=== PATIENT | female | born 1970 | race Caucasian/White ===

== ENCOUNTER → 2023-07-10 14:06 | Outpatient (CLI) | payer OTHER, MEDICAID, SELFPAY ==
--- NOTE | 2023-07-11 21:56 | DI.NM.S_ITS ---
DATE OF SERVICE: 07/10/2023 PROCEDURE: Pharmacologic vasodilator stress and rest myocardial perfusion imaging with gating to assess ejection fraction and regional wall motion. ORDERING PROVIDER: Dilan Suarez MD INDICATIONS: The patient is a 52-year-old morbidly obese female with paroxysmal atrial fibrillation and intermittent chest discomfort. CARDIAC STRESS: Per protocol, 0.4 mg of regadenoson was infused with a normal hemodynamic response. She had no chest discomfort or anginal symptoms. Her resting ECG showed sinus rhythm with fairly normal ST segments. With stress, there were subtle T-wave inversions in the inferolateral leads that promptly resolved. She had occasional PACs, but otherwise maintained sinus rhythm throughout the study. Per protocol, 25.7 millicuries of technetium-99m Myoview was injected and she was imaged 15 minutes later using a gated SPECT acquisition protocol. The day prior, while at rest, she was injected with 26.4 millicuries of technetium-99m Myoview was imaged 15 minutes later, again using a gated SPECT acquisition protocol. FINDINGS: 1. Raw data: There is fairly marked breast attenuation noted which clearly impacts the interpretation with the subdiaphragmatic activity being more intense than that seen within the heart. The TID ratio is normal at 0.38 with a normal TID ratio of 1.01. 2. Quantitated gated SPECT: Post-stress ejection fraction is estimated at 73% without any focal wall motion abnormality. The resting ejection fraction is estimated at 71% with a resting end-diastolic volume of 155 mL. 3. Myocardial perfusion imaging: Post-stress supine images grossly show a normal perfusion pattern without any obvious perfusion defects. The resting images show a similar perfusion pattern although with a mild defect in the inferior wall, likely reflecting diaphragmatic attenuation, although the patient was unable to lie prone to assess for this. IMPRESSION: 1. Probable normal myocardial perfusion study although with reduced sensitivity because of marginal image quality. 2. No obvious perfusion defects to suggest any myocardial ischemia or previous myocardial infarction. 3. Probable normal left ventricular systolic function without any obvious focal wall motion abnormality with mildly increased left ventricular volumes. 4. No angina with pharmacologic vasodilator stress but with subtle, brief T-wave inversions with stress, yet no significant ST-segment deviation. She remained in sinus rhythm and had occasional PACs but no other arrhythmias. Lydia Amezcua - RS/graciela/MT doc#: [id number]/job#: [id number] dd: 07/11/2023 16:06:00 dt: 07/11/2023 21:31:00 DICTATING MD/COPIES TO: Franklin Drake MD; Dilan Suarez MD COPIES MNE: REBEL;
== END ==
PROVIDERS: Referring Provider Internal Medicine; Visit Provider Internal Medicine
DX: R07.89 Other chest pain (principal); I48.0 Paroxysmal atrial fibrillation; E66.01 Morbid (severe) obesity due to excess calories
CPT/HCPCS: 78452; 93017; A9502; J2785

== ENCOUNTER → 2025-01-28 13:33 | Outpatient (CLI) | payer OTHER, SELFPAY ==
--- NOTE | 2025-01-28 13:34 | DI.ECHO.S_ITS ---
[facility] : : [address] : : [place] : : [id number] : : Phone: [phone] Echocardiogram Report + + :Name: MEL ROMO Study Date: 01/28/2025 Height: 70.5 in: :[facility] ReadingLocation: Weight: 355 lb : : Gender: Female BSA: 2.7 m2 : :: 1970 Age: 54 yrs BP: 129/75 mmHg: :Reason For Study: ATRIAL FIBRILLATION : :Ordering Physician: MO SUAREZ Performed By: Adina Macias : :Referring: MO SUAREZ : + + Interpretation Summary 1. The left ventricular contractility is normal. Estimate ejection fraction is greater than 60% with no segmental wall motion abnormalities. Mild concentric LVH. Normal diastolic function. 2. The right ventricular contractility is normal. 3. Borderline left atrial enlargement with mild left ventricular enlargement. The right atrium and right ventricle are of normal size 4. Mild aortic valvular stenosis with peak velocity of 2.19 m/s. 5. No obvious intracardiac shunts. 6. No obvious intracardiac masses nor thrombi. 7. No hemodynamically significant pericardial effusion 8. Low right-sided filling pressures. Conclusion: Normal biventricular function with mild aortic valvular stenosis. Procedure: A two-dimensional transthoracic echocardiogram with color flow and Doppler was performed. The study quality was technically adequate. There is no prior echocardiogram noted for this patient. The patient was in sinus bradycardia with heart rates between 50-78 bpm during the exam. Left Ventricle: There is mild concentric left ventricular hypertrophy. The left ventricle is normal in size. LV internal diastolic dimension indexed to BSA of 2.3cm/m^2. The ejection fraction is estimated to be 60-65%. Right Ventricle: The right ventricle is normal in size, thickness and function. The right ventricular systolic function is normal. Atria: The left atrium is mildly dilated. Right atrial size is normal. There is no Doppler evidence for an interatrial shunt. Mitral Valve: The mitral valve leaflets appear to open well. There is no mitral regurgitation noted. Aortic Valve: The aortic valve is grossly normal. There is minimally reduced leaflet mobility. The peak aortic velocity is 2.19 m/sec. The aortic valve mean gradient is 10 mmHg. The calculated aortic valve area is 1.7 cm2. There is trace aortic regurgitation. Tricuspid Valve: The tricuspid valve leaflets are thin and pliable. There is trace tricuspid regurgitation. The right ventricular systolic pressure is estimated to be at least 38 mmHg based on an estimated right atrial pressure of 3 mm Hg. Pulmonic Valve: The pulmonic valve is not well visualized. There is trace pulmonic regurgitation. Great Vessels: The aortic root is normal size. The dimensions of the ascending aorta are normal. The IVC is of normal diameter and collapses greater than 50% with a sniff. This suggests a low right atrial pressure of 3 mm Hg. Pericardium/ Pleura There is no pericardial effusion. There is no pleural effusion. MMode/2D Measurements & Calculations LVIDd: 6.1 cm LVOT diam: 2.1 cm LVIDs: 3.7 cm Ao root diam: 3.1 cm FS: 38.7 % asc Aorta Diam: 3.7 cm EPSS: 1.2 cm Ao Arch Diam (Prox Trans): 3.7 cm IVSd: 1.2 cm LVPWd: 0.87 cm LV knott. diameter/BSA (cm/m^2): 2.3 LV sys. diameter/BSA (cm/m^2): 1.4 LA A2 area: 25.8 cm2 RA long axis: 5.5 cm LA A4 area: 27.5 cm2 RA area: 20.2 cm2 LA length (vol): 6.6 cm RA vol: 62.6 ml LA vol: 91.6 ml RA : 23.4 ml/m2 LA vol index: 34.2 ml/m2 IVC diam: 2.0 cm RVD1 (basal): 4.3 cm TAPSE: 2.4 cm Doppler Measurements & Calculations Ao V2 max: 219.1 cm/sec LVOT Max Dhaval: 111.3 cm/sec Ao V2 mean: 140.8 cm/sec LV V1 max P.0 mmHg Ao max P.0 mmHg LV V1 VTI: 25.0 cm Ao mean P.9 mmHg PALAK(I,D): 1.8 cm2 Ao V2 VTI: 46.6 cm PALAK(V,D): 1.7 cm2 sev ratio: 0.54 PALAK indexed to BSA (cm^2/m^2): 0.67 MV E max dhaval: 126.8 cm/sec TR max dhaval: 294.2 cm/sec MV A max dhaval: 71.2 cm/sec TR max P.6 mmHg MV E/A: 1.8 PA V2 max: 143.7 cm/sec Med Peak E' Dhaval: 9.7 cm/sec PA V2 mean: 100.8 cm/sec E/E' med: 13.1 PA mean P.5 mmHg Lat Peak E' Dhaval: 14.5 cm/sec PA pr(Accel): 25.5 mmHg E/E' lat: 8.7 E/e' average: 10.9 MV dec time: 0.20 sec SV(LVOT): 83.2 ml Reading Physician:VINCENZO
== END ==
LOC: ECHO 13:34
PROVIDERS: PCP Internal Medicine; Referring Provider Internal Medicine; Visit Provider Internal Medicine
DX: I35.0 Nonrheumatic aortic (valve) stenosis (principal); I48.0 Paroxysmal atrial fibrillation; I10 Essential (primary) hypertension; R07.9 Chest pain, unspecified
CPT/HCPCS: 93306

== ENCOUNTER → 2025-02-18 12:42 | Outpatient (CLI) | payer OTHER, SELFPAY ==
--- NOTE | 2025-02-18 12:44 | DI.NM.S_ITS ---
PROCEDURE: NM VELMA PERF SPECT R&S PHARM Rest and pharmacological stress myocardial perfusion SPECT with gated imaging and ejection fraction RADIOPHARMACEUTICAL: 26.7 mCi Tc-99m tetrafosmin IV at rest and 27.1 mCi Tc-99m tetrafosmin IV at peak effect of pharmacological stress. [id number] was performed. INDICATIONS: PAF TECHNIQUE: Radiopharmaceutical was injected at peak stress test, and also at rest. SPECT images were obtained. SPECT myocardial perfusion images were displayed in short axis, horizontal long axis, and vertical long axis views. Gated images were reviewed using Tapad software. COMPARISON: None. CARDIAC STRESS: A pharmacologic stress test was performed under the supervision of an attending staff, using an infusion of lexican 0.4mg IV X1. Hemodynamic data: There is normal blood pressure and heart rate response to pharmacologic stress. Symptoms: The patient denied anginal chest pain. Aminophylline: none EKG: No diagnostic changes of ischemia; no ectopy. FINDINGS: Raw data: There is good myocardial uptake of radiotracer. No significant motion artifacts. Ihxy-ks-omcao ratio is 0.4 (normal is less than 0.38 for tetrafosmin tracer). Left ventricle function: Gated images demonstrate normal left ventricular wall thickening. No segmental wall motion abnormalities. No transient ischemic dilation; TID is 1.35 (normal less than 1.3). Left ventricle resting end diastolic volume is 173 mL. Left ventricle stress ejection fraction is 72%; normal range is above 45%. Myocardial perfusion: There is a fixed basal inferior wall defect that is consistent with prior infarct and no significant ischemia, but artifact can't be excluded as prone images are not available for comparison. IMPRESSION: Abnormal pharm nuclear stress test. 1) There is a fixed basal inferior wall defect that is consistent with prior infarct and no significant ischemia, but artifact can't be excluded as prone images are not available for comparison. SSS 0. 2) Transient ischemic dilatation (TID) ratio elevated at 1.35. Consider balance ischemia from multi-vessel disease. 3) Enlarged left ventricle (resting EDV 173cc) with normal wall motion and normal systolic function (EF post stress 72%). Lung/heart ratio elevated 0.40. 4) No diagnostic ST changes with lexiscan. 5) No angina during the study. 6) Compared to the nuc stress done 07/10/2023, perfusion defect and elevated TID ratio are new on this study. Recommend further ischemia evaluation with alternative modality. Dictated by: Ever Velaqzuez MD on 02/24/2025 at 16:53 Approved by: Ever Velazquez MD on 02/24/2025 at 16:58
== END ==
LOC: NUCM 12:43
PROVIDERS: PCP Internal Medicine; Referring Provider Internal Medicine; Visit Provider Internal Medicine
DX: I48.0 Paroxysmal atrial fibrillation (principal); R94.39 Abnormal result of other cardiovascular function study
CPT/HCPCS: 78452; 93017; A9502; J2785